=== PATIENT | male | born 1980 | race Caucasian/White ===

== ENCOUNTER 2018-01-17 23:13 | Emergency (ER) | payer SELFPAY ==
[~2018-01-17] VITALS: Ht 177.8 cm; Wt 86.7 kg
[2018-01-17 23:16] VITALS: BP 163/110
[2018-01-17] MEDS ORDERED: PENI500T2 PO (23:53)
== END 2018-01-18 00:07 | disposition home or self-care (01) ==
LOC: ER 23:14
DX: K04.7 Periapical abscess without sinus (principal)
CPT/HCPCS: 99283